=== PATIENT | male | born 1965 | race African-American/Black ===

== ENCOUNTER 2018-03-26 15:02 | Emergency (ER) | payer OTHER ==
[~2018-03-26] VITALS: Ht 175.3 cm; Wt 126.1 kg
[2018-03-26 15:14] VITALS: BP_SYST 114
[2018-03-26 15:37] LABS: BASOPHILS % (AUTO) 0.5 % (0.0-2.0); EOSINOPHILS % (AUTO) 0.5 % (0.0-4.0); HEMATOCRIT 42.5 % (36-54); HEMOGLOBIN 13.6 g/dL (14.0-18.0); LYMPHOCYTES # (AUTO) 2.2 K/uL (1.0-5.5); LYMPHOCYTES % (AUTO) 23.2 % (20.5-51.5); MEAN CORPUSCULAR HEMOGLOBIN 25 pg (27-31); MEAN CORPUSCULAR HGB CONC 32 % (32-36); MEAN CORPUSCULAR VOLUME 79 fL (79.0-98.0); MONOCYTES # (AUTO) 1.1 K/uL (0.0-1.0); NEUTROPHILS # (AUTO) 6.2 K/uL (1.8-7.7); NEUTROPHILS % (AUTO) 63.8 % (40.0-70.0); PLATELET COUNT (AUTO) 330 K/uL (130-430); RED BLOOD CELL COUNT(AUTO) 5.37 MIL/uL (4.2-6.2); WHITE BLOOD COUNT (AUTO) 9.5 K/uL (4.8-10.8)
[2018-03-26 15:51] LABS: CREATININE 0.89 mg/dL (0.55-1.30)
[2018-03-26 15:56] LABS: ALBUMIN 2.9 g/dL (3.4-4.8)
[2018-03-26 16:30] LABS: BILIRUBIN,URINE NEGATIVE (NEGATIVE); BLOOD, URINE 3+ (NEGATIVE); CLARITY/URINE HAZY (CLEAR); COLOR,URINE YELLOW (YELLOW); GLUCOSE,URINE NEGATIVE (NEGATIVE); KETONES,URINE NEGATIVE (NEGATIVE); LEUKOCYTE ESTERASE ,URINE TRACE (NEGATIVE); NITRITE, URINE POSITIVE (NEGATIVE); PH,URINE 5.5 (5.0-8.0); PROTEIN URINE TRACE (NEGATIVE)
[2018-03-26 16:38] LABS: BACTERIA,URINE MODERATE /HPF (None Seen)
[2018-03-26 16:39] LABS: MUCUS,URINE None Seen /LPF (None Seen)
[2018-03-26 17:11] VITALS: BP_SYST 114
== END 2018-03-26 17:11 | disposition home or self-care (01) ==
LOC: SED 15:02
DX: N45.2 Orchitis (principal)
CPT/HCPCS: 36415; 76870-TC; 80053; 81000-TC; 85025; 87086; 87186-TC; 99284